=== PATIENT | male | born 1950 | race American Indian/Alaskan Native ===

== ENCOUNTER 2018-08-23 17:50 | Observation (INO) | payer MEDICARE ==
[2018-08-23] MEDS ORDERED: Sodium Chloride 0.9% 1,000 ML IV ONE (18:24)
[2018-08-23] MEDS ORDERED: (Novolin R) Insulin Human Regular 100 units/ml vial IVP STA (18:28)
[2018-08-23 18:48] LABS: BASO % 1.1 % (0.0-2.0); EOS # 0.1 K/uL (0.0-0.7); EOS % 2.6 % (0.0-4.0); HEMOGLOBIN 12.5 g/dL (12.0-18.0); LYMPH # 1.4 K/uL (1.0-4.3); LYMPH % 33.4 % (20.0-40.0); MEAN CELL VOLUME 92.5 fL (80.0-94.0); MEAN CORPUSCULAR HEMOGLOBIN 30.1 pg (27.0-31.0); MEAN CORPUSCULAR HGB CONC 32.6 g/dL (33.0-37.0); MEAN PLATELET VOLUME 8.7 fL (7.2-11.7); MONO # 0.3 K/uL (0.0-0.8); MONO % 7.2 % (0.0-10.0); NEUT # 2.4 K/uL (1.8-7.0); NEUT % 55.7 % (50.0-75.0); RBC 4.16 Mil/uL (4.40-5.90); RED CELL DISTRIBUTION WIDTH 12.9 % (11.5-14.5); WHITE BLOOD COUNT 4.3 K/uL (4.8-10.8)
[2018-08-23] MEDS ORDERED: (Novolin R) Insulin Human Regular 100 units/ml vial ONE (18:50)
[2018-08-23 19:08] LABS: ALB/GLOB RATIO 1.3 (1.0-2.1); ALBUMIN 4.2 g/dL (3.5-5.0); ALT/SGPT 17 U/L (21-72); AST/SGOT 29 U/L (17-59); BLOOD UREA NITROGEN 14 mg/dL (9-20); CALCIUM 8.5 mg/dl (8.6-10.4); GFR NON-AFRICAN AMERICAN > 60
[2018-08-23 19:15] LABS: SQUAMOUS EPITHIAL < 1 /hpf (0-5); URINE BILIRUBIN NEGATIVE (NEGATIVE); URINE BLOOD NEGATIVE (NEGATIVE); URINE CLARITY Clear (Clear); URINE COLOR Straw (YELLOW); URINE GLUCOSE (UA) 3+ mg/dL (Normal); URINE LEUKOCYTE ESTERASE NEG Leu/uL (Negative); URINE PROTEIN NEGATIVE (NEGATIVE); URINE UROBILINOGEN NORMAL mg/dL (0.2-1.0)
--- NOTE | 2018-08-23 19:56 | C.PDOC ---
History Of Present Illness 68 year old male with Hx of HTN and diabetes sent in by Dr. Tapia for elevated blood sugar. Contrary to triage, patient denies any complaints when questioned. Time Seen by Provider: 08/23/18 18:19 Chief Complaint (Nursing): High Blood Sugar History Per: Patient History/Exam Limitations: no limitations Onset/Duration Of Symptoms: Days Current Symptoms Are (Timing): Still Present Causative (Exacerbating) Factor(s): Other (Not known) Recent travel outside of the [place]: No Past Medical History Reviewed: Historical Data, Nursing Documentation, Vital Signs Vital Signs: Last Vital Signs Temp 97.5 F L 08/23/18 17:52 Pulse 71 08/23/18 17:52 Resp 18 08/23/18 17:52 BP 173/94 H 08/23/18 17:52 Pulse Ox 100 08/23/18 17:52 Family History: States: Unknown Family Hx - Social History Hx Tobacco Use: No Hx Alcohol Use: No Hx Substance Use: No - Immunization History Hx Tetanus Toxoid Vaccination: No Hx Influenza Vaccination: No Hx Pneumococcal Vaccination: No Review Of Systems Constitutional: Negative for: Fever, Chills Cardiovascular: Negative for: Chest Pain, Palpitations Respiratory: Negative for: Cough, Shortness of Breath Gastrointestinal: Negative for: Nausea, Vomiting Genitourinary: Negative for: Dysuria, Frequency, Hematuria Neurological: Negative for: Weakness, Numbness Physical Exam - Physical Exam Appears: Non-toxic Skin: Normal Color, Warm, Dry Head: Atraumatic, Normacephalic Eye(s): bilateral: Normal Inspection Oral Mucosa: Moist Neck: Normal, Supple Chest: Symmetrical, No Tenderness Cardiovascular: Rhythm Regular Respiratory: Normal Breath Sounds, No Rales, No Rhonchi, No Wheezing Gastrointestinal/Abdominal: Soft, No Tenderness Back: No CVA Tenderness Neurological/Psych: Oriented x3, Normal Speech ED Course And Treatment - Laboratory Results Result Diagrams: 08/23/18 18:43 08/23/18 18:43 Lab Results: Total Bilirubin 0.3 mg/dL (0.2-1.3) 08/23/18 18:43 AST 29 U/L (17-59) 08/23/18 18:43 ALT 17 U/L (21-72) L 08/23/18 18:43 Alkaline Phosphatase 136 U/L (38-126) H 08/23/18 18:43 Total Protein 7.5 g/dL (6.3-8.3) 08/23/18 18:43 Albumin 4.2 g/dL (3.5-5.0) 08/23/18 18:43 Globulin 3.3 gm/dL (2.2-3.9) 08/23/18 18:43 Albumin/Globulin Ratio 1.3 (1.0-2.1) 08/23/18 18:43 Urine Color Straw (YELLOW) 08/23/18 19:02 Urine Clarity Clear (Clear) 08/23/18 19:02 Urine pH 7.0 (5.0-8.0) 08/23/18 19:02 Ur Specific Jet 1.026 (1.003-1.030) 08/23/18 19:02 Urine Protein Negative mg/dL (NEGATIVE) 08/23/18 19:02 Urine Glucose (UA) 3+ mg/dL (Normal) H 08/23/18 19:02 Urine Ketones Negative mg/dL (NEGATIVE) 08/23/18 19:02 Urine Blood Negative (NEGATIVE) 08/23/18 19:02 Urine Nitrate Negative (NEGATIVE) 08/23/18 19:02 Urine Bilirubin Negative (NEGATIVE) 08/23/18 19:02 Urine Urobilinogen Normal mg/dL (0.2-1.0) 08/23/18 19:02 Ur Leukocyte Esterase Neg Serina/uL (Negative) 08/23/18 19:02 Urine WBC (Auto) < 1 /hpf (0-5) 08/23/18 19:02 Ur Squamous Epith Cells < 1 /hpf (0-5) 08/23/18 19:02 Lab Interpretation: Abnormal (Glucose 620) O2 Sat by Pulse Oximetry: 100 (Room air) Pulse Ox Interpretation: Normal Progress Note: Blood work and urinalysis ordered. IV fluids and insulin administered. Reevaluation Time: 20:51 Reassessment Condition: Improved (after IV fluids and insulin. Glucose 375) - Physician Consult Information Time Consulting Physician Contacted: 20:51 Physician Contacted: Suleman Tapia Outcome Of Conversation: He knows the patient well. He has been complaining of polyuria and polydyspia. He will stay for observation and management of his blood sugar. Disposition - Disposition Disposition: HOSPITALIZED Disposition Time: 20:53 Condition: IMPROVED - POA Present On Arrival: Poor Glycemic Control - Clinical Impression Clinical Impression: Diabetes mellitus with hyperglycemia - Scribe Statement The provider has reviewed the documentation as recorded by the Scribleonor Flower All medical record entries made by the Scribe were at my direction and persona lly dictated by me. I have reviewed the chart and agree that the record accurately reflects my personal performance of the history, physical exam, medical decision making, and the department course for this patient. I have also personally directed, reviewed, and agree with the discharge instructions and disposition.
[2018-08-23] MEDS ORDERED: Sodium Chloride 0.45% 1,000 ML IV SCH (21:15)
[2018-08-23] MEDS ORDERED: (Lantus) Insulin Glargine, Recombinant SC SCH (22:00)
[2018-08-23] MEDS: (Novolog) Insulin Aspart, Recombinant 100 u/ml 10 ml vial SC SCH (22:18)
[2018-08-24 01:54] VITALS: RESP 20
[2018-08-24 06:52] LABS: BASO % 0.7 % (0.0-2.0); EOS # 0.2 K/uL (0.0-0.7); EOS % 3.3 % (0.0-4.0); HEMOGLOBIN 11.1 g/dL (12.0-18.0); LYMPH % 38.6 % (20.0-40.0); MEAN CELL VOLUME 91.3 fL (80.0-94.0); MEAN CORPUSCULAR HGB CONC 32.8 g/dL (33.0-37.0); MEAN PLATELET VOLUME 8.4 fL (7.2-11.7); MONO # 0.5 K/uL (0.0-0.8); MONO % 9.2 % (0.0-10.0); NEUT # 2.5 K/uL (1.8-7.0); NEUT % 48.2 % (50.0-75.0); RBC 3.71 Mil/uL (4.40-5.90); RED CELL DISTRIBUTION WIDTH 12.7 % (11.5-14.5); WHITE BLOOD COUNT 5.2 K/uL (4.8-10.8)
[2018-08-24 07:30] LABS: ALB/GLOB RATIO 1.1 (1.0-2.1); ALBUMIN 3.4 g/dL (3.5-5.0); ALT/SGPT 21 U/L (21-72); AST/SGOT 26 U/L (17-59); BLOOD UREA NITROGEN 10 mg/dL (9-20); CALCIUM 8.1 mg/dl (8.6-10.4); GFR NON-AFRICAN AMERICAN > 60
[2018-08-24 08:39] VITALS: BP 151/94; PULSE 60; TEMP 98.4; O2SAT 94
[2018-08-24] MEDS: (Novolog) Insulin Aspart, Recombinant 100 u/ml 10 ml vial SC SCH ×2 (09:39→13:32)
[2018-08-24] MEDS ORDERED: Enoxaparin 40 mg Syringe SC SCH (10:00)
--- NOTE | 2018-08-25 06:04 | HP ---
HISTORY OF PRESENT ILLNESS: This patient is a 68-year-old male with history of diabetes and hypertension who came to my office complaining of polyuria, polydipsia and polyphagia, anorexia, weight loss, and generalized weakness. The patient was found to have a blood sugar done that was in 11/30/2017 in the office and the urine has shown positive ketone, so the patient was send to the emergency room for evaluation and possible admission. ALLERGIES: THE PATIENT HAS NO KNOWN ALLERGY. PAST MEDICAL HISTORY: Hypertension, diabetes and neuropathy. SOCIAL HISTORY: The patient is , has children and lives with . FAMILY HISTORY: His father and mother , cause unknown. REVIEW OF SYSTEMS: RESPIRATORY: No shortness of breath. CARDIOVASCULAR: The patient has been having some palpitation at times. GASTROINTESTINAL: Polydipsia and polyphagia. GENITOURINARY: Polyuria. NEUROLOGIC: The patient feels weak. PHYSICAL EXAMINATION: GENERAL: The patient is alert, awake and oriented x3. VITAL SIGNS: Blood pressure of 141/91, pulse is 98, respirations 20, temperature 98.8. NECK: Supple. LUNGS: Clear. HEART: Regular rate and rhythm. tachycardia and sometimes ranging to 100 to 105. ABDOMEN: Soft. Mild epigastric tenderness. EXTREMITIES: There is no edema. NEUROLOGIC: There is some sensory deficit to the plantar area and also patient was complaining of some numbness to the feet. LABORATORY DATA: The patient has blood test done, WBC was 4.3, hemoglobin 12.5, hematocrit is 38.4 and the patient had also a blood test done in the emergency room, glucose was 603. IMPRESSION AND PLAN: The patient was admitted for uncontrolled diabetes and also hypertension and neuropathy. The patient have a consult with Dr. Karen Brown, pipe crew foreman. The case was reviewed and discussed with Madeleine Méndez, the nurse practitioner. I have mentioned that also the patient has hemoglobin A1c of 17.6. Suleman Tapia MD
[2018-08-25] MEDS ORDERED: Pneumococcal 23-Valent Vaccine IM ONE (10:00)
[2018-08-25] MEDS ORDERED: Influenza Vaccine 60 mcg/0.5 mL SYR (4YR UP) IM ONE (10:00)
--- NOTE | 2018-08-25 20:42 | CP.PCM.CON ---
History of Present Illness - History of Present Illness History of Present Illness: contacted yesterday for endocrine consult , came today @ 8am to see the patient , pt. was discharged Past Patient History - Past Social History Smoking Status: Never Smoked - ENDOCRINE/METABOLIC Hx Diabetes Mellitus Type 1: Yes - PSYCHIATRIC Hx Substance Use: No - SURGICAL HISTORY Hx Surgeries: No - ANESTHESIA Hx Anesthesia: No Meds Home Medications: Home Medication List Medication Instructions Recorded Confirmed Type Aspirin [Ecotrin] 81 mg PO DAILY tabec 08/24/18 Rx Blood Sugar Diagnostic [Accu-Chek 1 each MC TID #100 strip 08/24/18 Rx Guide Test Strip] Blood-Glucose Meter [Accu-Chek 1 each MC TID #1 each 08/24/18 Rx Guide Monitor System] Insulin Aspart, Recombinant 5 unit SC ACD 30 Days ml 08/24/18 Rx [Novolog] Insulin Glargine,Hum.rec.anlog 20 unit SQ HS 30 Days insuln.pen 08/24/18 Rx [Lantus Solostar] Lancing Device/Lancets [Accu-Chek 1 each MC TID #100 kit 08/24/18 Rx Multiclix Lancet Kit] Lisinopril [Zestril] 10 mg PO DAILY #30 tab 08/24/18 Rx hydroCHLOROthiazide [Hydrodiuril] 25 mg PO DAILY #30 tab 08/24/18 Rx Allergies/Adverse Reactions: Allergies Allergy/AdvReac Type Severity Reaction Status Date / Time No Known Allergies Allergy Unverified 10/12/13 17:12 Results - Vital Signs Recent Vital Signs: Last Vital Signs Temp 98.4 F 08/24/18 08:37 Pulse 60 08/24/18 08:37 Resp 20 08/24/18 08:37 BP 151/94 H 08/24/18 08:37 Pulse Ox 94 L 08/24/18 08:37 - Labs Result Diagrams: 08/24/18 06:36 08/24/18 06:36
== END 2018-08-24 16:20 | disposition home or self-care (01) ==
LOC: C.ER 17:50 → C.9E 20:54 → C.6T 22:11
PROVIDERS: ADMIT Specialist; ATTEND Specialist
DX: E11.40 Type 2 diabetes mellitus with diabetic neuropathy, unspecified (principal); E11.65 Type 2 diabetes mellitus with hyperglycemia; I10 Essential (primary) hypertension; Z79.4 Long term (current) use of insulin
CPT/HCPCS: 36415; 80053; 81001; 82948; 83036; 85025; 96360; 96372; 96374; 99285; C9113; G0378; J1650; J7030

== ENCOUNTER 2018-11-24 11:22 | Outpatient (CLI) | payer MEDICARE | END 2018-11-24 11:23 | disposition home or self-care (01) | LOC: C.PAT 11:22 | DX: Z01.818 Encounter for other preprocedural examination (principal) ==